=== PATIENT | female | born 1985 | race Caucasian/White ===

== ENCOUNTER 2021-06-19 11:46 | Emergency (ER) | payer SELFPAY ==
[~2021-06-19] VITALS: Ht 154.9 cm; Wt 66.0 kg
[2021-06-19] MEDS ORDERED: BACITRACIN 15GM TUBE TOP ONE (12:15)
[2021-06-19] MEDS ORDERED: IBUPROFEN 600MG TABLET PO ONE (12:15)
[2021-06-19] MEDS ORDERED: BACITRACIN ZINC OINT UDPKT TOP SCH (12:30)
[2021-06-19 12:31] VITALS: BP 116/67
== END 2021-06-19 12:43 | disposition home or self-care (01) ==
LOC: ER 11:46
DX: T22.111A Burn of first degree of right forearm, initial encounter (principal); X08.8XXA Exposure to other specified smoke, fire and flames, initial encounter; Y93.89 Activity, other specified; Y92.89 Other specified places as the place of occurrence of the external cause; Y99.8 Other external cause status
CPT/HCPCS: 99283; Z7610